=== PATIENT | female | born 1945 | race Caucasian/White ===

== ENCOUNTER 2017-09-10 16:39 | Emergency (ER) | payer OTHER ==
[~2017-09-10] VITALS: Ht 162.6 cm; Wt 67.1 kg
[2017-09-10] MEDS ORDERED: GABA-827 PO (17:10)
[2017-09-10] MEDS ORDERED: AMLO2.5T2 PO (17:10)
[2017-09-10] MEDS ORDERED: ASPI-650 PO (17:11)
[2017-09-10] MEDS ORDERED: LEVO25TA4 PO (17:11)
[2017-09-10 19:05] VITALS: BP 136/81
== END 2017-09-10 19:08 | disposition home or self-care (01) ==
LOC: ED 19:02
DX: S86.911A Strain of unspecified muscle(s) and tendon(s) at lower leg level, right leg, initial encounter (principal); X58.XXXA Exposure to other specified factors, initial encounter; Y93.89 Activity, other specified; Y92.89 Other specified places as the place of occurrence of the external cause; Y99.8 Other external cause status; E89.0 Postprocedural hypothyroidism
CPT/HCPCS: 99284